=== PATIENT | male | born 1965 ===

== ENCOUNTER 2018-01-10 16:12 | Inpatient (IN) | payer MEDICAID, OTHER ==
[2018-01-10] MEDS ORDERED: Sodium Chloride 0.9% 1,000 ML IV ONE (16:49)
--- NOTE | 2018-01-10 16:49 | C.PDOC ---
History Of Present Illness 52 year old male presents to the ED for evaluation of abdominal pain which began yesterday. Patient also complains of fever, nausea, vomiting and pain that radiates down to his testicles. Patient states he was treated for an unknown abdominal condition in [facility]. He denies dysuria, hematuria, diarrhea, back pain and has no other complaints at this time. Time Seen by Provider: 01/10/18 16:42 Chief Complaint (Nursing): Fever History Per: Patient History/Exam Limitations: no limitations Onset/Duration Of Symptoms: Hrs Current Symptoms Are (Timing): Still Present Associated Symptoms: Fever, Nausea, Vomiting. denies: Diarrhea Additional History Per: Patient Past Medical History Reviewed: Historical Data, Nursing Documentation, Vital Signs Vital Signs: Last Vital Signs Temp 99.6 F 01/11/18 08:00 Pulse 97 H 01/11/18 16:30 Resp 20 01/11/18 08:00 BP 103/64 01/11/18 08:00 Pulse Ox 96 01/11/18 08:00 - Medical History PMH: No Chronic Diseases Surgical History: Cholecystectomy Family History: States: Unknown Family Hx - Social History Hx Alcohol Use: No Hx Substance Use: No - Immunization History Hx Tetanus Toxoid Vaccination: No Hx Influenza Vaccination: No Hx Pneumococcal Vaccination: No Review Of Systems Constitutional: Positive for: Fever Gastrointestinal: Positive for: Nausea, Vomiting, Abdominal Pain. Negative for : Diarrhea Genitourinary: Positive for: Other (testicular pain ). Negative for: Dysuria Musculoskeletal: Negative for: Back Pain Physical Exam - Physical Exam Appears: Non-toxic, No Acute Distress Skin: Normal Color, Warm, Dry Head: Atraumatic, Normacephalic Eye(s): bilateral: Normal Inspection Oral Mucosa: Moist Neck: Supple Cardiovascular: Rhythm Regular, No Murmur Respiratory: Normal Breath Sounds, No Rales, No Rhonchi, No Wheezing Gastrointestinal/Abdominal: Soft, Tenderness (diffuse, worse around suprapubic region ), No Guarding, No Rebound Extremity: Normal ROM, Capillary Refill (less than 2 seconds ) Neurological/Psych: Oriented x3, Normal Speech, Normal Cognition ED Course And Treatment - Laboratory Results Result Diagrams: 01/11/18 06:59 01/11/18 06:59 ECG: Interpreted By Me, Viewed By Me ECG Rhythm: Sinus Rhythm Interpretation Of ECG: Normal Sinus Rhythm at rate 94bpm. No ST/T wave changes. Rate From EC O2 Sat by Pulse Oximetry: 97 (on RA) Pulse Ox Interpretation: Normal Medical Decision Making Medical Decision Making: Progress: Bloodwork, urinalysis, Testicular US, CT A/P ordered and reviewed. Tylenol PO, Zofran IVP, and IV Fluids administered. Disposition - Disposition Disposition: HOSPITALIZED Disposition Time: 08:00 Condition: FAIR - Clinical Impression Clinical Impression: Diverticulitis - Scribe Statement The provider has reviewed the documentation as recorded by the Scribe (Carla Knox) Provider Attestation: All medical record entries made by the Scribe were at my direction and personally dictated by me. I have reviewed the chart and agree that the record accurately reflects my personal performance of the history, physical exam, medical decision making, and the department course for this patient. I have also personally directed, reviewed, and agree with the discharge instructions and disposition. Decision To Admit - Pt Status Changed To: Hospital Disposition Of: Inpatient - Admit Certification Admit to Inpatient:: After my assessment, the patient will require hospitalization for at least two midnights. This is because of the severity of symptoms shown, intensity of services needed, and/or the medical risk in this patient being treated as an outpatient. - InPatient: Physician Admission Certification:: pt with perf diverticulits - . Bed Request Type: Telemetry Admitting Physician: Solitario Nguyen Patient Diagnosis: Diverticulitis
[2018-01-10 16:51] LABS: BASO # 0.1 K/uL (0.0-0.2); BASO % 0.8 % (0.0-2.0); EOS % 0.2 % (0.0-4.0); HEMOGLOBIN 12.5 g/dL (12.0-18.0); LYMPH # 2.5 K/uL (1.0-4.3); LYMPH % 14.7 % (20.0-40.0); MEAN CELL VOLUME 86.6 fL (80.0-94.0); MEAN CORPUSCULAR HEMOGLOBIN 28.8 pg (27.0-31.0); MEAN CORPUSCULAR HGB CONC 33.2 g/dL (33.0-37.0); MEAN PLATELET VOLUME 8.4 fL (7.2-11.7); MONO # 1.2 K/uL (0.0-0.8); MONO % 6.9 % (0.0-10.0); NEUT % 77.4 % (50.0-75.0); RBC 4.33 Mil/uL (4.40-5.90); RED CELL DISTRIBUTION WIDTH 13.9 % (11.5-14.5); WHITE BLOOD COUNT 16.8 K/uL (4.8-10.8)
[2018-01-10 16:58] LABS: VENOUS BLOOD GAS BASE EXCESS -7.6 mmol/L (0.0-2.0); VENOUS BLOOD GAS PCO2 28 mmHg (40-60); VENOUS BLOOD GAS PO2 26 mm/Hg (30-55); VENOUS BLOOD PH 7.37 (7.32-7.43)
[2018-01-10] MEDS ORDERED: Sodium Chloride 0.9% 1,000 ML ONE (17:01)
[2018-01-10 17:03] LABS: ALB/GLOB RATIO 0.8 (1.0-2.1); ALBUMIN 3.8 g/dL (3.5-5.0); CALCIUM 8.6 mg/dl (8.6-10.4); GFR AFRICAN-AMERICAN > 60; GFR NON-AFRICAN AMERICAN > 60
[2018-01-10] MEDS: Sodium Chloride 0.9% 1,000 ML IV ONE ×2 (17:04→17:19)
[2018-01-10 17:09] LABS: ALT/SGPT 61 U/L (21-72); AST/SGOT 39 U/L (17-59); BLOOD UREA NITROGEN 8 mg/dL (9-20)
[2018-01-10 17:23] LABS: SQUAMOUS EPITHIAL < 1 /hpf (0-5); URINE BILIRUBIN NEGATIVE (NEGATIVE); URINE BLOOD NEGATIVE (NEGATIVE); URINE CLARITY Clear (Clear); URINE COLOR Yellow (YELLOW); URINE GLUCOSE (UA) NORMAL (Normal); URINE LEUKOCYTE ESTERASE NEG Leu/uL (Negative); URINE PROTEIN NEGATIVE (NEGATIVE); URINE UROBILINOGEN NORMAL mg/dL (0.2-1.0)
[2018-01-10] MEDS ORDERED: Iohexol 300 100 ML IJ ONE (17:28)
[2018-01-10] MEDS ORDERED: Ciprofloxacin 400mg/200ml D5W 400 MG/200 ML BAG IVPB STA (18:51)
[2018-01-10] MEDS ORDERED: metroNIDAZOLE IV 500 mg/100 ml 500 MG/100 ML BAG IVPB STA (18:52)
--- NOTE | 2018-01-10 18:54 | CT ---
PROCEDURE: CT Abdomen and Pelvis with contrast HISTORY: abd pain leukocytosis COMPARISON: None. TECHNIQUE: Contrast dose: Omnipaque 300, 100 cc Radiation dose: Total exam DLP = 837.33 mGy-cm. This CT exam was performed using one or more of the following dose reduction techniques: Automated exposure control, adjustment of the mA and/or kV according to patient size, and/or use of iterative reconstruction technique. FINDINGS: LOWER THORAX: Cardiomegaly. No pleural or pericardial effusion. Limited linear atelectasis or fibrosis left base. Mild right hemidiaphragm elevation noted. LIVER: Diminished density suggests diffuse hepatic steatosis. No discrete hepatic mass or intrahepatic biliary dilatation identified. GALLBLADDER AND BILE DUCTS: Prior cholecystectomy noted. No significant common bile duct dilatation. PANCREAS: Unremarkable. No gross lesion or ductal dilatation. SPLEEN: Unremarkable. ADRENALS: Unremarkable. No mass. KIDNEYS AND URETERS: A small cyst seen at the upper pole right kidney. No obstructive uropathy bilaterally. Occasional cortical defects in the lower poles of both kidneys encasing the right midpole kidney suspicious for chronic tiny renal infarcts. Punctate nonobstructing intrarenal calculi are suspected bilaterally though these could reflect early excretion of iodinated contrast material. VASCULATURE: Unremarkable. No aortic aneurysm. BOWEL: The stomach is decompressed. There is no bowel obstruction identified. Lack of oral contrast agents limits the evaluation. Examination is positive for thickening of the mid sigmoid colon with extensive diverticular changes and local pericolic reaction. Limited fluid is seen collecting posterior to this loop referral enhancement, measuring 3.5 x 1.6 cm. Loculated extraluminal gas is seen cephalad to the same level of the head of the mid sigmoid colon. Overall, the pattern is most compatible with sigmoid diverticulitis though other etiologies are possible including other infectious or for or inflammatory causes. Ischemia is not favored nor is neoplasm bladder including the differs diagnosis. APPENDIX: Normal appendix. PERITONEUM: See bowel section above. LYMPH NODES: Unremarkable. No enlarged lymph nodes. BLADDER: Unremarkable. REPRODUCTIVE: Enlarged prostate gland. BONES: No acute fracture. OTHER FINDINGS: None. IMPRESSION: Findings most compatible sigmoid diverticulitis with evidence of perforation including extraluminal loculated gas in the peritoneal mid cephalad to the affected mid sigmoid segment and local pericolic fat. Trace fluid is seen posteriorly. Abscess is not favored at this time. Clinical and CT follow-up are advised. Other lesser findings as discussed above. Findings discussed with Dr. Meadows with written down and read back verification 01/10/2018 6:45 p.m..
[2018-01-10] MEDS ORDERED: metroNIDAZOLE IV 500 mg/100 ml 500 MG/100 ML BAG ONE (19:07)
[2018-01-10] MEDS ORDERED: Ciprofloxacin 400mg/200ml D5W 400 MG/200 ML BAG IVPB ONE (19:07)
--- NOTE | 2018-01-10 19:31 | US ---
EXAM: US Scrotum EXAM DATE/TIME: 01/10/2018 4:49 PM CLINICAL HISTORY: 52 years old, male; Pain; Scrotum pain; Additional info: Tesicular pain TECHNIQUE: Real-time ultrasound of the scrotum with color Doppler and image documentation. COMPARISON: There are no prior studies for comparison. FINDINGS: Right: Right testicle measures approximately 3.3 x 1.8 x 2.7 cm. Echotexture is uniform. There are no testicular masses. There is expected intratesticular blood flow. Right epididymal head measures approximately 11 x 10 mm. There is a 2 mm epididymal head cyst. There is a small right hydrocele. Left: Left testicle measures approximately 3.7 x 1.8 x 2.4 cm. Echotexture of the testis is uniform. There no masses. There is expected intratesticular blood flow. Left epididymal head measures 7 x 9 mm. There is an epididymal head cyst. There is a left varicocele. There is a hydrocele. IMPRESSION: No torsion; left varicocele; small bilateral hydroceles
--- NOTE | 2018-01-10 20:04 | CP.PCM.HP ---
History of Present Illness - History of Present Illness History of Present Illness: 52M with no significant past medical history presents to [facility] ED with complaints of abdominal pain. Patient reports pain began yesterday afternoon. He states pain was localized to his lower abdomen, describes pain as being constant and sharp in nature, denies radiation of pain. Patient decided to come to ED when he noticed pain was not improving. Patient reports subjective fever/chills, and nausea. Denies hematemesis/hematochezia. Upon arrival to ED patient was tachycardic(111) and hypotensive (94/62), patient was given 2L bolus, and responded appropriately. At time of examination patient was laying comfortably in bed at this time his vitals were 98.3F, HR88, BP 110/67, RR 18, O2 Sat of 97% on room air. PMH: as stated above PSH: laparoscopic cholecystectomy, umbilical hernia repair Allergies: penicillin Soc Hx: denies smoking, EtOH use, and illicit drug use Fam Hx: non- contributory Present on Admission - Present on Admission Any Indicators Present on Admission: No Review of Systems - Review of Systems Review of Systems: 12pt ROS carried out, unremarkable, except as stated in HPI Past Patient History - Infectious Disease Hx of Infectious Diseases: None - Past Social History Smoking Status: Never Smoked - PSYCHIATRIC Hx Substance Use: No - SURGICAL HISTORY Hx Cholecystectomy: Yes - ANESTHESIA Hx Anesthesia: Yes Hx Anesthesia Reactions: No Meds Allergies/Adverse Reactions: Allergies Allergy/AdvReac Type Severity Reaction Status Date / Time ampicillin Allergy Verified 01/10/18 16:26 Physical Exam - Constitutional Appears: Non-toxic, No Acute Distress - Head Exam Head Exam: NORMOCEPHALIC - Eye Exam Eye Exam: EOMI - Respiratory Exam Respiratory Exam: NORMAL BREATHING PATTERN - Cardiovascular Exam Cardiovascular Exam: +S1, +S2 - GI/Abdominal Exam GI & Abdominal Exam: Distended, Guarding, Soft, Tenderness. absent: Firm, Rigid Additional comments: lower abdominal tenderness with localized guarding moderate distension not peritoneal - Neurological Exam Neurological exam: Alert, Oriented x3 - Psychiatric Exam Psychiatric exam: Normal Mood - Skin Skin Exam: Dry, Intact, Warm Results - Vital Signs Recent Vital Signs: Last Vital Signs Temp 98.3 F 01/10/18 18:53 Pulse 88 01/10/18 18:53 Resp 18 01/10/18 18:53 BP 108/67 01/10/18 18:53 Pulse Ox 97 01/10/18 18:53 - Labs Result Diagrams: 01/10/18 16:48 01/10/18 16:48 Labs: Laboratory Results - last 24 hr 01/10/18 01/10/18 01/10/18 16:48 16:48 16:54 WBC 16.8 H RBC 4.33 L Hgb 12.5 Hct 37.5 MCV 86.6 MCH 28.8 MCHC 33.2 RDW 13.9 Plt Count 397 MPV 8.4 Neut % (Auto) 77.4 H Lymph % (Auto) 14.7 L Hendricks % (Auto) 6.9 Eos % (Auto) 0.2 Baso % (Auto) 0.8 Neut # (Auto) 13.0 H Lymph # (Auto) 2.5 Hendricks # (Auto) 1.2 H Eos # (Auto) 0.0 Baso # (Auto) 0.1 pO2 26 L VBG pH 7.37 VBG pCO2 28 L VBG HCO3 17.6 VBG Total CO2 17.1 L VBG O2 Sat (Calc) 61.2 VBG Base Excess -7.6 L VBG Potassium 2.1 L* Glucose 71 L Lactate 1.0 Crit Value Called To Dr jiménez Crit Value Called By Cristi kenny ground nuclear weapons assembly officer Crit Value Read Back Y Blood Gas Notified Time 1659 Sodium 139 150.0 H Potassium 4.2 Chloride 102 120.0 H Carbon Dioxide 24 Anion Gap 18 BUN 8 L Creatinine 1.1 Est GFR ( Amer) > 60 Est GFR (Non-Af Amer) > 60 Random Glucose 111 H Calcium 8.6 Total Bilirubin 1.0 AST 39 ALT 61 Alkaline Phosphatase 121 Total Protein 8.5 H Albumin 3.8 Globulin 4.6 H Albumin/Globulin Ratio 0.8 L Lipase Venous Blood Potassium 2.1 L* Urine Color Urine Clarity Urine pH Ur Specific Jupiter Urine Protein Urine Glucose (UA) Urine Ketones Urine Blood Urine Nitrate Urine Bilirubin Urine Urobilinogen Ur Leukocyte Esterase Urine WBC (Auto) Urine RBC (Auto) Ur Squamous Epith Cells 01/10/18 01/10/18 16:55 17:17 WBC RBC Hgb Hct MCV MCH MCHC RDW Plt Count MPV Neut % (Auto) Lymph % (Auto) Hendricks % (Auto) Eos % (Auto) Baso % (Auto) Neut # (Auto) Lymph # (Auto) Hendricks # (Auto) Eos # (Auto) Baso # (Auto) pO2 VBG pH VBG pCO2 VBG HCO3 VBG Total CO2 VBG O2 Sat (Calc) VBG Base Excess VBG Potassium Glucose Lactate Crit Value Called To Crit Value Called By Crit Value Read Back Blood Gas Notified Time Sodium Potassium Chloride Carbon Dioxide Anion Gap BUN Creatinine Est GFR ( Amer) Est GFR (Non-Af Amer) Random Glucose Calcium Total Bilirubin AST ALT Alkaline Phosphatase Total Protein Albumin Globulin Albumin/Globulin Ratio Lipase 111 Venous Blood Potassium Urine Color Yellow Urine Clarity Clear Urine pH 5.0 Ur Specific Jupiter 1.016 Urine Protein Negative Urine Glucose (UA) Normal Urine Ketones Negative Urine Blood Negative Urine Nitrate Negative Urine Bilirubin Negative Urine Urobilinogen Normal Ur Leukocyte Esterase Neg Urine WBC (Auto) 4 Urine RBC (Auto) 1 Ur Squamous Epith Cells < 1 - Imaging and Cardiology CT scan - abdomen Status: Image reviewed by me, Report reviewed by me Assessment & Plan - Assessment and Plan (Free Text) Assessment: 52M with sigmoid diverticulitis with perforation Plan: -NPO -IVF -Abx -Analgesic/Anti-emetic -F/u AM labs -Serial abdominal exams -At present time patient is hemodynamically stable -No acute surgical intervention required at this present time -Will obtain repeat imaging, if there is abscess formation will need IR drainage -If patient deteriorates clinically will need operative intervention -Will continue to closely monitor patient -Admit to telemetry -DVT ppx D/w Dr. Patrick Garcia PGY2 - Date & Time Date: 01/10/18 Time: 19:30
[2018-01-10] MEDS ORDERED: HYDROmorphone 1 mg/ml ISec IVP PRN (20:07)
[2018-01-10] MEDS ORDERED: Ciprofloxacin 400mg/200ml D5W 400 MG/200 ML BAG IVPB SCH (21:00)
[2018-01-10] MEDS: Lactated Ringer's 1,000 ML IV SCH (21:48)
[2018-01-11] MEDS: metroNIDAZOLE IV 500 mg/100 ml 500 MG/100 ML BAG IVPB SCH ×3 (00:26→17:54)
[2018-01-11] MEDS: Lactated Ringer's 1,000 ML IV SCH ×3 (05:37→20:41)
[2018-01-11] MEDS: Ciprofloxacin 400mg/200ml D5W 400 MG/200 ML BAG IVPB SCH ×2 (06:07→19:24)
[2018-01-11 07:25] LABS: BASO % 0.1 % (0.0-2.0); EOS % 0.2 % (0.0-4.0); MEAN CORPUSCULAR HEMOGLOBIN 29.3 pg (27.0-31.0); MEAN CORPUSCULAR HGB CONC 33.6 g/dL (33.0-37.0); MEAN PLATELET VOLUME 8.7 fL (7.2-11.7); MONO # 1.2 K/uL (0.0-0.8); MONO % 9.1 % (0.0-10.0); NEUT # 10.1 K/uL (1.8-7.0); NEUT % 75.6 % (50.0-75.0); RBC 3.75 Mil/uL (4.40-5.90); RED CELL DISTRIBUTION WIDTH 13.9 % (11.5-14.5); WHITE BLOOD COUNT 13.4 K/uL (4.8-10.8)
--- NOTE | 2018-01-11 08:02 | CP.PCM.PN ---
Subjective - Date & Time of Evaluation Date of Evaluation: 01/11/18 Time of Evaluation: 07:52 - Subjective Subjective: Surgery: Dr. Nguyen Pt seen and examined. No acute overnight events. States he's doing ok this morning but still has pain in the lower abdominal quadrants. Denies any episodes of N/V. Denies F/C. Objective - Vital Signs/Intake and Output Vital Signs (last 24 hours): Temp Pulse Resp BP Pulse Ox 98.6 F 77 20 125/70 98 01/11/18 00:00 01/11/18 07:47 01/11/18 00:00 01/11/18 00:00 01/11/18 00:00 Intake and Output: 01/11/18 01/11/18 06:59 18:59 Intake Total 125 Balance 125 - Medications Medications: Current Medications Acetaminophen (Tylenol 325mg Tab) 650 mg PO Q6 PRN PRN Reason: Fever >100.4 F Hydromorphone HCl (Dilaudid) 0.5 mg IVP Q3H PRN PRN Reason: Pain, moderate (4-7) Last Admin: 01/10/18 21:46 Dose: 0.5 mg Metronidazole (Flagyl) 500 mg in 100 mls @ 100 mls/hr IVPB Q6 NEYMAR PRN Reason: Protocol Last Admin: 01/11/18 05:37 Dose: 100 mls/hr Ciprofloxacin (Cipro 400mg/200ml Dsw) 400 mg in 200 mls @ 133 mls/hr IVPB Q12H NEYMAR PRN Reason: Protocol Last Admin: 01/11/18 06:07 Dose: 133 mls/hr Lactated Ringer's (Lactated Ringer's) 1,000 mls @ 125 mls/hr IV .Q8H [facility] Last Admin: 01/11/18 06:09 Dose: 125 mls/hr Ondansetron HCl (Zofran Inj) 4 mg IVP Q4 PRN PRN Reason: Nausea/Vomiting - Labs Labs: 01/11/18 06:59 01/10/18 16:48 - Constitutional Appears: Well, No Acute Distress - Head Exam Head Exam: ATRAUMATIC, NORMOCEPHALIC - Eye Exam Eye Exam: Normal appearance - ENT Exam ENT Exam: Mucous Membranes Moist - Respiratory Exam Respiratory Exam: NORMAL BREATHING PATTERN - Cardiovascular Exam Cardiovascular Exam: RRR - GI/Abdominal Exam GI & Abdominal Exam: Soft, Tenderness (R & LLQ). absent: Distended, Guarding - Neurological Exam Neurological Exam: Alert, Awake, Oriented x3 - Skin Skin Exam: Dry, Warm Assessment and Plan - Assessment and Plan (Free Text) Assessment: 52M with acute diverticulitis; [place] Stage Ia Plan: - will continue conservative management - keep NPO with IV ABX - Will get GI on board so that pt can be set up for outpt colonoscopy in 6 weeks - serial abdominal exams - d/w Dr. Nguyen who agrees with above Tracee, PGY-3
[2018-01-11 08:07] LABS: BLOOD UREA NITROGEN 6 mg/dL (9-20); GFR AFRICAN-AMERICAN > 60; GFR NON-AFRICAN AMERICAN > 60
[2018-01-11] MEDS: HYDROmorphone 0.5 mg/0.5 ml ISec IVP PRN (09:21)
[2018-01-11] MEDS: Enoxaparin 40 mg Syringe SC SCH (09:22)
--- NOTE | 2018-01-11 10:12 | CARD ---
APPROVED REPORT EKG Measurement Heart [id number] <Conclusion> Normal sinus rhythm Normal ECG
--- NOTE | 2018-01-11 10:17 | CP.PCM.CON ---
<MarycruzSachaElaina - Last Filed: 01/11/18 13:10> History of Present Illness - History of Present Illness History of Present Illness: Gastroenterology Consult Note Mr. Yo is a 52 year old Male with no significant PMHx who presented to the ED with severe abdominal pain. Patient reports the pain started yesterday afternoon, 1-2 hours after eating food. The pain is localized to the lower aspect of his abdomen, is sharp, constant and does not radiate. He admitted to some diaphoresis and nausea during the initial onset of his pain. He took some tylenol for the pain, with no relief. Denied any vomiting, diarrhea , hematochezia, or black, tarry stools. Denied any recent travel or sick contacts. Admitted to lower abdomen No prior EGD or colonoscopy. 12 point ROS unremarkable unless otherwise noted above. PMHx: Denied PSHx: laparoscopic cholecystectomy, umbilical hernia repair All: PCN SHx: Denied any tobacco, ETOH, or illicit drug use FHx: Denied any GI diseases or malignancies Past Patient History - Infectious Disease Hx of Infectious Diseases: None - Past Social History Smoking Status: Never Smoked - MUSCULOSKELETAL/RHEUMATOLOGICAL Hx Falls: No - PSYCHIATRIC Hx Substance Use: No - SURGICAL HISTORY Hx Cholecystectomy: Yes - ANESTHESIA Hx Anesthesia: Yes Hx Anesthesia Reactions: No Meds Allergies/Adverse Reactions: Allergies Allergy/AdvReac Type Severity Reaction Status Date / Time ampicillin Allergy Verified 01/10/18 16:26 - Medications Medications: Current Medications Acetaminophen (Tylenol 325mg Tab) 650 mg PO Q6 PRN PRN Reason: Fever >100.4 F Enoxaparin Sodium (Lovenox) 40 mg SC DAILY [facility] Last Admin: 01/11/18 09:22 Dose: 40 mg Hydromorphone HCl (Dilaudid) 0.5 mg IVP Q3H PRN PRN Reason: Pain, moderate (4-7) Last Admin: 01/11/18 09:21 Dose: 0.5 mg Metronidazole (Flagyl) 500 mg in 100 mls @ 100 mls/hr IVPB Q6 NEYMAR PRN Reason: Protocol Last Admin: 01/11/18 05:37 Dose: 100 mls/hr Ciprofloxacin (Cipro 400mg/200ml Dsw) 400 mg in 200 mls @ 133 mls/hr IVPB Q12H NEYMAR PRN Reason: Protocol Last Admin: 01/11/18 06:07 Dose: 133 mls/hr Lactated Ringer's (Lactated Ringer's) 1,000 mls @ 125 mls/hr IV .Q8H NEYMAR Last Admin: 01/11/18 06:09 Dose: 125 mls/hr Ondansetron HCl (Zofran Inj) 4 mg IVP Q4 PRN PRN Reason: Nausea/Vomiting Physical Exam - Constitutional Appears: No Acute Distress - Head Exam Head Exam: NORMAL INSPECTION, NORMOCEPHALIC - Eye Exam Eye Exam: EOMI, Normal appearance, PERRL Pupil Exam: NORMAL ACCOMODATION - ENT Exam ENT Exam: Mucous Membranes Moist, Normal Exam - Respiratory Exam Respiratory Exam: Clear to Auscultation Bilateral, NORMAL BREATHING PATTERN - Cardiovascular Exam Cardiovascular Exam: REGULAR RHYTHM - GI/Abdominal Exam GI & Abdominal Exam: Normal Bowel Sounds, Soft, Tenderness (TTP RLQ, LLQ ). absent: Distended, Organomegaly - Rectal Exam Rectal Exam: Deferred - Extremities Exam Extremities exam: Positive for: normal inspection, pedal pulses present. Negative for: pedal edema, tenderness - Neurological Exam Neurological exam: Alert, Oriented x3 - Psychiatric Exam Psychiatric exam: Normal Affect, Normal Mood - Skin Skin Exam: Dry, Intact, Normal Color, Warm Results - Vital Signs Recent Vital Signs: Last Vital Signs Temp 99.6 F 01/11/18 08:00 Pulse 88 01/11/18 08:00 Resp 20 01/11/18 08:00 BP 103/64 01/11/18 08:00 Pulse Ox 96 01/11/18 08:00 - Labs Result Diagrams: 01/11/18 06:59 01/11/18 06:59 Labs: Laboratory Results - last 24 hr 01/10/18 01/10/18 01/10/18 16:48 16:48 16:54 WBC 16.8 H RBC 4.33 L Hgb 12.5 Hct 37.5 MCV 86.6 MCH 28.8 MCHC 33.2 RDW 13.9 Plt Count 397 MPV 8.4 Neut % (Auto) 77.4 H Lymph % (Auto) 14.7 L Mcdonald % (Auto) 6.9 Eos % (Auto) 0.2 Baso % (Auto) 0.8 Neut # (Auto) 13.0 H Lymph # (Auto) 2.5 Mcdonald # (Auto) 1.2 H Eos # (Auto) 0.0 Baso # (Auto) 0.1 pO2 26 L VBG pH 7.37 VBG pCO2 28 L VBG HCO3 17.6 VBG Total CO2 17.1 L VBG O2 Sat (Calc) 61.2 VBG Base Excess -7.6 L VBG Potassium 2.1 L* Glucose 71 L Lactate 1.0 Crit Value Called To Dr jiménez Crit Value Called By Cristi kenny aml analyst Crit Value Read Back Y Blood Gas Notified Time 1659 Sodium 139 150.0 H Potassium 4.2 Chloride 102 120.0 H Carbon Dioxide 24 Anion Gap 18 BUN 8 L Creatinine 1.1 Est GFR ( Amer) > 60 Est GFR (Non-Af Amer) > 60 Random Glucose 111 H Calcium 8.6 Total Bilirubin 1.0 AST 39 ALT 61 Alkaline Phosphatase 121 Total Protein 8.5 H Albumin 3.8 Globulin 4.6 H Albumin/Globulin Ratio 0.8 L Lipase Venous Blood Potassium 2.1 L* Urine Color Urine Clarity Urine pH Ur Specific [place] Urine Protein Urine Glucose (UA) Urine Ketones Urine Blood Urine Nitrate Urine Bilirubin Urine Urobilinogen Ur Leukocyte Esterase Urine WBC (Auto) Urine RBC (Auto) Ur Squamous Epith Cells 01/10/18 01/10/18 01/11/18 16:55 17:17 06:59 WBC 13.4 H RBC 3.75 L Hgb 11.0 L Hct 32.7 L MCV 87.0 MCH 29.3 MCHC 33.6 RDW 13.9 Plt Count 323 MPV 8.7 Neut % (Auto) 75.6 H Lymph % (Auto) 15.0 L Mcdonald % (Auto) 9.1 Eos % (Auto) 0.2 Baso % (Auto) 0.1 Neut # (Auto) 10.1 H Lymph # (Auto) 2.0 Mcdonald # (Auto) 1.2 H Eos # (Auto) 0.0 Baso # (Auto) 0.0 pO2 VBG pH VBG pCO2 VBG HCO3 VBG Total CO2 VBG O2 Sat (Calc) VBG Base Excess VBG Potassium Glucose Lactate Crit Value Called To Crit Value Called By Crit Value Read Back Blood Gas Notified Time Sodium Potassium Chloride Carbon Dioxide Anion Gap BUN Creatinine Est GFR ( Amer) Est GFR (Non-Af Amer) Random Glucose Calcium Total Bilirubin AST ALT Alkaline Phosphatase Total Protein Albumin Globulin Albumin/Globulin Ratio Lipase 111 Venous Blood Potassium Urine Color Yellow Urine Clarity Clear Urine pH 5.0 Ur Specific [place] 1.016 Urine Protein Negative Urine Glucose (UA) Normal Urine Ketones Negative Urine Blood Negative Urine Nitrate Negative Urine Bilirubin Negative Urine Urobilinogen Normal Ur Leukocyte Esterase Neg Urine WBC (Auto) 4 Urine RBC (Auto) 1 Ur Squamous Epith Cells < 1 01/11/18 06:59 WBC RBC Hgb Hct MCV MCH MCHC RDW Plt Count MPV Neut % (Auto) Lymph % (Auto) Mcdonald % (Auto) Eos % (Auto) Baso % (Auto) Neut # (Auto) Lymph # (Auto) Mcdonald # (Auto) Eos # (Auto) Baso # (Auto) pO2 VBG pH VBG pCO2 VBG HCO3 VBG Total CO2 VBG O2 Sat (Calc) VBG Base Excess VBG Potassium Glucose Lactate Crit Value Called To Crit Value Called By Crit Value Read Back Blood Gas Notified Time Sodium 140 Potassium 3.8 Chloride 105 Carbon Dioxide 23 Anion Gap 15 BUN 6 L Creatinine 1.1 Est GFR ( Amer) > 60 Est GFR (Non-Af Amer) > 60 Random Glucose 95 Calcium 8.0 L Total Bilirubin AST ALT Alkaline Phosphatase Total Protein Albumin Globulin Albumin/Globulin Ratio Lipase Venous Blood Potassium Urine Color Urine Clarity Urine pH Ur Specific [place] Urine Protein Urine Glucose (UA) Urine Ketones Urine Blood Urine Nitrate Urine Bilirubin Urine Urobilinogen Ur Leukocyte Esterase Urine WBC (Auto) Urine RBC (Auto) Ur Squamous Epith Cells Assessment & Plan - Assessment and Plan (Free Text) Assessment: Mr. Yo is a 52 year old Male with no significant PMHx who presented to the ED with severe abdominal pain. Patient reports the pain started yesterday afternoon, 1-2 hours after eating food. The pain is localized to the lower aspect of his abdomen, is sharp, constant and does not radiate. CT scan showed sigmoid diverticulitis with loculated air in sigmoid mesentery. Sigmoid diverticulitis with micro perforations in the sigmoid mesentery Plan: - Advance diet as tolerated - Continue with IV abx, antiemetics - Recommend outpatient colonoscopy in 6-8 weeks - Will continue to monitor patient's clinical course DW Elaina Washburn DO, PGY-1 <Davide Vasquez - Last Filed: 01/11/18 14:17> Meds - Medications Medications: Current Medications Acetaminophen (Tylenol 325mg Tab) 650 mg PO Q6 PRN PRN Reason: Fever >100.4 F Enoxaparin Sodium (Lovenox) 40 mg SC DAILY [facility] Last Admin: 01/11/18 09:22 Dose: 40 mg Hydromorphone HCl (Dilaudid) 0.5 mg IVP Q3H PRN PRN Reason: Pain, moderate (4-7) Last Admin: 01/11/18 09:21 Dose: 0.5 mg Metronidazole (Flagyl) 500 mg in 100 mls @ 100 mls/hr IVPB Q6 NEYMAR PRN Reason: Protocol Last Admin: 01/11/18 05:37 Dose: 100 mls/hr Ciprofloxacin (Cipro 400mg/200ml Dsw) 400 mg in 200 mls @ 133 mls/hr IVPB Q12H NEYMAR PRN Reason: Protocol Last Admin: 01/11/18 06:07 Dose: 133 mls/hr Lactated Ringer's (Lactated Ringer's) 1,000 mls @ 125 mls/hr IV .Q8H [facility] Last Admin: 01/11/18 06:09 Dose: 125 mls/hr Ondansetron HCl (Zofran Inj) 4 mg IVP Q4 PRN PRN Reason: Nausea/Vomiting Results - Vital Signs Recent Vital Signs: Last Vital Signs Temp 99.6 F 01/11/18 08:00 Pulse 91 H 01/11/18 12:00 Resp 20 01/11/18 08:00 BP 103/64 01/11/18 08:00 Pulse Ox 96 01/11/18 08:00 - Labs Result Diagrams: 01/11/18 06:59 01/11/18 06:59 Labs: Laboratory Results - last 24 hr 01/10/18 01/10/18 01/10/18 16:48 16:48 16:54 WBC 16.8 H RBC 4.33 L Hgb 12.5 Hct 37.5 MCV 86.6 MCH 28.8 MCHC 33.2 RDW 13.9 Plt Count 397 MPV 8.4 Neut % (Auto) 77.4 H Lymph % (Auto) 14.7 L Mcdonald % (Auto) 6.9 Eos % (Auto) 0.2 Baso % (Auto) 0.8 Neut # (Auto) 13.0 H Lymph # (Auto) 2.5 Mcdonald # (Auto) 1.2 H Eos # (Auto) 0.0 Baso # (Auto) 0.1 pO2 26 L VBG pH 7.37 VBG pCO2 28 L VBG HCO3 17.6 VBG Total CO2 17.1 L VBG O2 Sat (Calc) 61.2 VBG Base Excess -7.6 L VBG Potassium 2.1 L* Glucose 71 L Lactate 1.0 Crit Value Called To Dr jiménez Crit Value Called By Cristi kenny aml analyst Crit Value Read Back Y Blood Gas Notified Time 1659 Sodium 139 150.0 H Potassium 4.2 Chloride 102 120.0 H Carbon Dioxide 24 Anion Gap 18 BUN 8 L Creatinine 1.1 Est GFR ( Amer) > 60 Est GFR (Non-Af Amer) > 60 Random Glucose 111 H Calcium 8.6 Total Bilirubin 1.0 AST 39 ALT 61 Alkaline Phosphatase 121 Total Protein 8.5 H Albumin 3.8 Globulin 4.6 H Albumin/Globulin Ratio 0.8 L Lipase Venous Blood Potassium 2.1 L* Urine Color Urine Clarity Urine pH Ur Specific [place] Urine Protein Urine Glucose (UA) Urine Ketones Urine Blood Urine Nitrate Urine Bilirubin Urine Urobilinogen Ur Leukocyte Esterase Urine WBC (Auto) Urine RBC (Auto) Ur Squamous Epith Cells 01/10/18 01/10/18 01/11/18 16:55 17:17 06:59 WBC 13.4 H RBC 3.75 L Hgb 11.0 L Hct 32.7 L MCV 87.0 MCH 29.3 MCHC 33.6 RDW 13.9 Plt Count 323 MPV 8.7 Neut % (Auto) 75.6 H Lymph % (Auto) 15.0 L Mcdonald % (Auto) 9.1 Eos % (Auto) 0.2 Baso % (Auto) 0.1 Neut # (Auto) 10.1 H Lymph # (Auto) 2.0 Mcdonald # (Auto) 1.2 H Eos # (Auto) 0.0 Baso # (Auto) 0.0 pO2 VBG pH VBG pCO2 VBG HCO3 VBG Total CO2 VBG O2 Sat (Calc) VBG Base Excess VBG Potassium Glucose Lactate Crit Value Called To Crit Value Called By Crit Value Read Back Blood Gas Notified Time Sodium Potassium Chloride Carbon Dioxide Anion Gap BUN Creatinine Est GFR ( Amer) Est GFR (Non-Af Amer) Random Glucose Calcium Total Bilirubin AST ALT Alkaline Phosphatase Total Protein Albumin Globulin Albumin/Globulin Ratio Lipase 111 Venous Blood Potassium Urine Color Yellow Urine Clarity Clear Urine pH 5.0 Ur Specific [place] 1.016 Urine Protein Negative Urine Glucose (UA) Normal Urine Ketones Negative Urine Blood Negative Urine Nitrate Negative Urine Bilirubin Negative Urine Urobilinogen Normal Ur Leukocyte Esterase Neg Urine WBC (Auto) 4 Urine RBC (Auto) 1 Ur Squamous Epith Cells < 1 01/11/18 06:59 WBC RBC Hgb Hct MCV MCH MCHC RDW Plt Count MPV Neut % (Auto) Lymph % (Auto) Mcdonald % (Auto) Eos % (Auto) Baso % (Auto) Neut # (Auto) Lymph # (Auto) Mcdonald # (Auto) Eos # (Auto) Baso # (Auto) pO2 VBG pH VBG pCO2 VBG HCO3 VBG Total CO2 VBG O2 Sat (Calc) VBG Base Excess VBG Potassium Glucose Lactate Crit Value Called To Crit Value Called By Crit Value Read Back Blood Gas Notified Time Sodium 140 Potassium 3.8 Chloride 105 Carbon Dioxide 23 Anion Gap 15 BUN 6 L Creatinine 1.1 Est GFR ( Amer) > 60 Est GFR (Non-Af Amer) > 60 Random Glucose 95 Calcium 8.0 L Total Bilirubin AST ALT Alkaline Phosphatase Total Protein Albumin Globulin Albumin/Globulin Ratio Lipase Venous Blood Potassium Urine Color Urine Clarity Urine pH Ur Specific [place] Urine Protein Urine Glucose (UA) Urine Ketones Urine Blood Urine Nitrate Urine Bilirubin Urine Urobilinogen Ur Leukocyte Esterase Urine WBC (Auto) Urine RBC (Auto) Ur Squamous Epith Cells Attending/Attestation - Attestation I have personally seen and examined this patient.: Yes I have fully participated in the care of the patient.: Yes I have reviewed all pertinent clinical information: Yes Notes (Text): 01/11/18 14:17 52 year old male who presents with LLQ pain found to have acute sigmoid diverticulitis. Recommend IV antibiotics. Appreciated surgical evaluation. Recommend outpatient colonoscopy in 6-8 weeks.
[2018-01-12] MEDS: metroNIDAZOLE IV 500 mg/100 ml 500 MG/100 ML BAG IVPB SCH ×4 (00:37→18:08)
[2018-01-12] MEDS: Ciprofloxacin 400mg/200ml D5W 400 MG/200 ML BAG IVPB SCH ×2 (06:23→18:05)
[2018-01-12 06:29] LABS: BASO % 0.2 % (0.0-2.0); EOS # 0.1 K/uL (0.0-0.7); EOS % 0.7 % (0.0-4.0); HEMOGLOBIN 11.2 g/dL (12.0-18.0); LYMPH % 19.3 % (20.0-40.0); MEAN CELL VOLUME 86.5 fL (80.0-94.0); MEAN CORPUSCULAR HGB CONC 33.5 g/dL (33.0-37.0); MEAN PLATELET VOLUME 8.2 fL (7.2-11.7); MONO # 1.2 K/uL (0.0-0.8); MONO % 11.4 % (0.0-10.0); NEUT # 6.9 K/uL (1.8-7.0); NEUT % 68.4 % (50.0-75.0); RBC 3.85 Mil/uL (4.40-5.90); RED CELL DISTRIBUTION WIDTH 13.7 % (11.5-14.5); WHITE BLOOD COUNT 10.2 K/uL (4.8-10.8)
--- NOTE | 2018-01-12 06:42 | CP.PCM.PN ---
Subjective - Date & Time of Evaluation Date of Evaluation: 01/12/18 Time of Evaluation: 06:42 - Subjective Subjective: Gen Sx: Dr Nguyen Pt S&E. NAEO. Reports pain is improved but still present. Tolerating CLD. Passing flatus but no BM. Denies f/c, sob, chest pain, n/v. Objective - Vital Signs/Intake and Output Vital Signs (last 24 hours): Temp Pulse Resp BP Pulse Ox 98.4 F 80 20 120/72 97 01/12/18 04:47 01/12/18 04:47 01/12/18 04:47 01/12/18 04:47 01/12/18 04:47 Intake and Output: 01/11/18 01/12/18 18:59 06:59 Intake Total 1000 1500 Output Total 1600 Balance -600 1500 - Medications Medications: Current Medications Acetaminophen (Tylenol 325mg Tab) 650 mg PO Q6 PRN PRN Reason: Fever >100.4 F Enoxaparin Sodium (Lovenox) 40 mg SC DAILY [facility] Last Admin: 01/11/18 09:22 Dose: 40 mg Hydromorphone HCl (Dilaudid) 0.5 mg IVP Q3H PRN PRN Reason: Pain, moderate (4-7) Last Admin: 01/11/18 09:21 Dose: 0.5 mg Metronidazole (Flagyl) 500 mg in 100 mls @ 100 mls/hr IVPB Q6 NEYMAR PRN Reason: Protocol Last Admin: 01/12/18 05:27 Dose: 100 mls/hr Ciprofloxacin (Cipro 400mg/200ml Dsw) 400 mg in 200 mls @ 133 mls/hr IVPB Q12H NEYMAR PRN Reason: Protocol Last Admin: 01/12/18 06:23 Dose: 133 mls/hr Lactated Ringer's (Lactated Ringer's) 1,000 mls @ 50 mls/hr IV .Q20H [facility] Last Admin: 01/11/18 20:41 Dose: 50 mls/hr Ketorolac Tromethamine (Toradol) 30 mg IVP Q6 PRN PRN Reason: Pain, Mild (1-3) Last Admin: 01/12/18 04:27 Dose: 30 mg Ondansetron HCl (Zofran Inj) 4 mg IVP Q4 PRN PRN Reason: Nausea/Vomiting - Labs Labs: 01/11/18 06:59 01/11/18 06:59 - Constitutional Appears: Non-toxic, No Acute Distress - ENT Exam ENT Exam: Mucous Membranes Moist - Respiratory Exam Respiratory Exam: absent: Accessory Muscle Use, Respiratory Distress - Cardiovascular Exam Cardiovascular Exam: REGULAR RHYTHM. absent: Tachycardia - GI/Abdominal Exam GI & Abdominal Exam: Soft, Tenderness (suprapubic but improved). absent: Distended, Firm, Guarding, Rigid, Rebound - Neurological Exam Neurological Exam: Alert, Awake, Oriented x3 - Psychiatric Exam Psychiatric exam: Normal Affect, Normal Mood - Skin Skin Exam: Normal Color, Warm Assessment and Plan - Assessment and Plan (Free Text) Assessment: 52M with diverticulitis Plan: cont abx cont CLD for one more day no immediate surgical intervention planned outpatient coloinoscopy in 6-8 weeks d/w Dr Patrick Reyes, PGY3
[2018-01-12 06:44] LABS: BLOOD UREA NITROGEN 8 mg/dL (9-20); GFR AFRICAN-AMERICAN > 60; GFR NON-AFRICAN AMERICAN > 60
--- NOTE | 2018-01-12 09:43 | CP.PCM.PN ---
<Melissa Knox - Last Filed: 01/12/18 09:44> Subjective - Date & Time of Evaluation Date of Evaluation: 01/12/18 Time of Evaluation: 07:45 - Subjective Subjective: PGY4 GI Follow-up Pt seen and examined bedside decreased abd pain denies any BM tolerating clears ROS: 10 point ROS conducted, elsa other than above Objective - Vital Signs/Intake and Output Vital Signs (last 24 hours): Temp Pulse Resp BP Pulse Ox 97.9 F 83 20 100/63 97 01/12/18 07:40 01/12/18 07:40 01/12/18 07:40 01/12/18 07:40 01/12/18 07:40 Intake and Output: 01/12/18 01/12/18 06:59 18:59 Intake Total 1500 400 Balance 1500 400 - Medications Medications: Current Medications Acetaminophen (Tylenol 325mg Tab) 650 mg PO Q6 PRN PRN Reason: Fever >100.4 F Enoxaparin Sodium (Lovenox) 40 mg SC DAILY [facility] Last Admin: 01/11/18 09:22 Dose: 40 mg Hydromorphone HCl (Dilaudid) 0.5 mg IVP Q3H PRN PRN Reason: Pain, moderate (4-7) Last Admin: 01/11/18 09:21 Dose: 0.5 mg Metronidazole (Flagyl) 500 mg in 100 mls @ 100 mls/hr IVPB Q6 NEYMAR PRN Reason: Protocol Last Admin: 01/12/18 05:27 Dose: 100 mls/hr Ciprofloxacin (Cipro 400mg/200ml Dsw) 400 mg in 200 mls @ 133 mls/hr IVPB Q12H NEYMAR PRN Reason: Protocol Last Admin: 01/12/18 06:23 Dose: 133 mls/hr Lactated Ringer's (Lactated Ringer's) 1,000 mls @ 50 mls/hr IV .Q20H [facility] Last Admin: 01/11/18 20:41 Dose: 50 mls/hr Ketorolac Tromethamine (Toradol) 30 mg IVP Q6 PRN PRN Reason: Pain, Mild (1-3) Last Admin: 01/12/18 04:27 Dose: 30 mg Ondansetron HCl (Zofran Inj) 4 mg IVP Q4 PRN PRN Reason: Nausea/Vomiting - Labs Labs: 01/12/18 06:18 01/12/18 06:18 - Constitutional Appears: Well, No Acute Distress - Head Exam Head Exam: ATRAUMATIC, NORMOCEPHALIC - Eye Exam Eye Exam: Normal appearance - ENT Exam ENT Exam: Mucous Membranes Moist, Normal Exam - Neck Exam Neck Exam: Normal Inspection - Respiratory Exam Respiratory Exam: Clear to Ausculation Bilateral, NORMAL BREATHING PATTERN. absent: Rales, Rhonchi, Wheezes, Respiratory Distress - Cardiovascular Exam Cardiovascular Exam: REGULAR RHYTHM, +S1, +S2 - GI/Abdominal Exam GI & Abdominal Exam: Soft, Tenderness Additional comments: LLQ and lower umbilical area - Extremities Exam Extremities Exam: absent: Joint Swelling, Pedal Edema - Neurological Exam Neurological Exam: Alert, Awake, Oriented x3 - Psychiatric Exam Psychiatric exam: Normal Affect, Normal Mood - Skin Skin Exam: Dry, Intact, Normal Color, Warm Assessment and Plan - Assessment and Plan (Free Text) Assessment: Mr. Yo is a 52 year old Male with no significant PMHx who presented to the ED with severe abdominal pain. Patient reports the pain started yesterday afternoon, 1-2 hours after eating food. The pain is localized to the lower aspect of his abdomen, is sharp, constant and does not radiate. CT scan showed sigmoid diverticulitis with loculated air in sigmoid mesentery w/ fluid collection. Sigmoid diverticulitis with micro perforations in the sigmoid mesentery Plan: - Advance diet as tolerated - Continue with IV abx, antiemetics as per surgery - would recommend repeat CT abd on sunday to reeval collection - Recommend outpatient colonoscopy in 6-8 weeks - Will continue to monitor patient's clinical course DW Dr. Worthy <Drew Worthy - Last Filed: 01/12/18 10:01> Objective - Vital Signs/Intake and Output Vital Signs (last 24 hours): Temp Pulse Resp BP Pulse Ox 97.9 F 83 20 100/63 97 01/12/18 07:40 01/12/18 07:40 01/12/18 07:40 01/12/18 07:40 01/12/18 07:40 Intake and Output: 01/12/18 01/12/18 06:59 18:59 Intake Total 1500 400 Balance 1500 400 - Medications Medications: Current Medications Acetaminophen (Tylenol 325mg Tab) 650 mg PO Q6 PRN PRN Reason: Fever >100.4 F Enoxaparin Sodium (Lovenox) 40 mg SC DAILY [facility] Last Admin: 01/11/18 09:22 Dose: 40 mg Hydromorphone HCl (Dilaudid) 0.5 mg IVP Q3H PRN PRN Reason: Pain, moderate (4-7) Last Admin: 01/11/18 09:21 Dose: 0.5 mg Metronidazole (Flagyl) 500 mg in 100 mls @ 100 mls/hr IVPB Q6 NEYMAR PRN Reason: Protocol Last Admin: 01/12/18 05:27 Dose: 100 mls/hr Ciprofloxacin (Cipro 400mg/200ml Dsw) 400 mg in 200 mls @ 133 mls/hr IVPB Q12H NEYMAR PRN Reason: Protocol Last Admin: 01/12/18 06:23 Dose: 133 mls/hr Lactated Ringer's (Lactated Ringer's) 1,000 mls @ 50 mls/hr IV .Q20H [facility] Last Admin: 01/11/18 20:41 Dose: 50 mls/hr Ketorolac Tromethamine (Toradol) 30 mg IVP Q6 PRN PRN Reason: Pain, Mild (1-3) Last Admin: 01/12/18 04:27 Dose: 30 mg Ondansetron HCl (Zofran Inj) 4 mg IVP Q4 PRN PRN Reason: Nausea/Vomiting - Labs Labs: 01/12/18 06:18 01/12/18 06:18 Attending/Attestation - Attestation I have personally seen and examined this patient.: Yes I have fully participated in the care of the patient.: Yes I have reviewed all pertinent clinical information, including history, physical exam and plan: Yes Notes (Text): 01/12/18 09:58 I have seen and examined patient with GI fellow. No acute events overnight, he still continues to endorse LLQ abdominal pain, though improved compared to yesterday. He denies nausea, vomiting, fever/chills. Tolerating PO liquids without difficulty. Review of vitals from today are normal. Abdominal pain Acute sigmoid diverticulitis complicated by perforation with associated fluid collection - Liquid diet as tolerated - Continue with antibiotic therapy - Suggest repeat CT imaging within additional 48 hours to assess for disease progression - Follow up surgical recommendations - Patient will eventually require colonoscopy evaluation 8 weeks following resolution of acute symptoms. No further planned GI intervention at this time, will sign off case. Please reconsult as necessary, thank you.
[2018-01-12] MEDS: Enoxaparin 40 mg Syringe SC SCH (10:00)
[2018-01-12] MEDS: Lactated Ringer's 1,000 ML IV SCH ×2 (14:53→16:25)
[2018-01-13] MEDS: metroNIDAZOLE IV 500 mg/100 ml 500 MG/100 ML BAG IVPB SCH ×4 (00:50→18:09)
[2018-01-13] MEDS: HYDROmorphone 0.5 mg/0.5 ml ISec IVP PRN (06:06)
[2018-01-13] MEDS: Ciprofloxacin 400mg/200ml D5W 400 MG/200 ML BAG IVPB SCH ×2 (06:45→19:12)
[2018-01-13 07:28] LABS: BASO % 0.3 % (0.0-2.0); EOS % 0.3 % (0.0-4.0); HEMOGLOBIN 10.9 g/dL (12.0-18.0); LYMPH # 1.4 K/uL (1.0-4.3); LYMPH % 12.2 % (20.0-40.0); MEAN CELL VOLUME 85.9 fL (80.0-94.0); MEAN CORPUSCULAR HEMOGLOBIN 29.3 pg (27.0-31.0); MEAN CORPUSCULAR HGB CONC 34.1 g/dL (33.0-37.0); MEAN PLATELET VOLUME 8.5 fL (7.2-11.7); MONO # 1.3 K/uL (0.0-0.8); MONO % 11.6 % (0.0-10.0); NEUT # 8.7 K/uL (1.8-7.0); NEUT % 75.6 % (50.0-75.0); RBC 3.72 Mil/uL (4.40-5.90); RED CELL DISTRIBUTION WIDTH 13.5 % (11.5-14.5); WHITE BLOOD COUNT 11.5 K/uL (4.8-10.8)
[2018-01-13 08:06] LABS: BLOOD UREA NITROGEN 5 mg/dL (9-20); CALCIUM 7.7 mg/dl (8.6-10.4); GFR AFRICAN-AMERICAN > 60; GFR NON-AFRICAN AMERICAN > 60
[2018-01-13] MEDS: Enoxaparin 40 mg Syringe SC SCH (09:21)
--- NOTE | 2018-01-13 13:15 | CP.PCM.PN ---
Subjective - Date & Time of Evaluation Date of Evaluation: 01/13/18 Time of Evaluation: 09:35 - Subjective Subjective: Surgery Progress note. Dr. Nguyen Pt seen and examined at bedside. Family member at bedside during examination. States that the abdominal pain is slightly worse this morning. Reports a fever, tmax 102.3F. No N/V. Stool with reports of red blood smear mixed in. Objective - Vital Signs/Intake and Output Vital Signs (last 24 hours): Temp Pulse Resp BP Pulse Ox 98.1 F 97 H 18 115/68 96 01/13/18 12:05 01/13/18 07:30 01/13/18 07:30 01/13/18 07:30 01/13/18 07:30 Intake and Output: 01/13/18 01/13/18 06:59 18:59 Intake Total 500 Output Total 1300 Balance -800 - Medications Medications: Current Medications Acetaminophen (Tylenol 325mg Tab) 650 mg PO Q6 PRN PRN Reason: Fever >100.4 F Last Admin: 01/13/18 07:41 Dose: 650 mg Enoxaparin Sodium (Lovenox) 40 mg SC DAILY [facility] Last Admin: 01/13/18 09:21 Dose: 40 mg Hydromorphone HCl (Dilaudid) 0.5 mg IVP Q3H PRN PRN Reason: Pain, moderate (4-7) Last Admin: 01/13/18 06:06 Dose: 0.5 mg Metronidazole (Flagyl) 500 mg in 100 mls @ 100 mls/hr IVPB Q6 NEYMAR PRN Reason: Protocol Last Admin: 01/13/18 11:12 Dose: 100 mls/hr Ciprofloxacin (Cipro 400mg/200ml Dsw) 400 mg in 200 mls @ 133 mls/hr IVPB Q12H NEYMAR PRN Reason: Protocol Last Admin: 01/13/18 06:45 Dose: 133 mls/hr Lactated Ringer's (Lactated Ringer's) 1,000 mls @ 125 mls/hr IV .Q8H [facility] Ketorolac Tromethamine (Toradol) 30 mg IVP Q6 PRN PRN Reason: Pain, Mild (1-3) Last Admin: 01/13/18 00:51 Dose: 30 mg Ondansetron HCl (Zofran Inj) 4 mg IVP Q4 PRN PRN Reason: Nausea/Vomiting Last Admin: 01/13/18 06:41 Dose: 4 mg - Labs Labs: 01/13/18 07:18 01/13/18 07:18 - Constitutional Appears: Non-toxic, No Acute Distress - Head Exam Head Exam: ATRAUMATIC, NORMAL INSPECTION, NORMOCEPHALIC - Eye Exam Eye Exam: EOMI, Normal appearance - ENT Exam ENT Exam: Mucous Membranes Moist - Respiratory Exam Respiratory Exam: NORMAL BREATHING PATTERN. absent: Accessory Muscle Use, Respiratory Distress - Cardiovascular Exam Cardiovascular Exam: RRR. absent: JVD - GI/Abdominal Exam GI & Abdominal Exam: Soft Additional comments: tenderness in LLQ, suprapubic area. no rebound, no guarding. soft, non-distended - Extremities Exam Extremities Exam: Normal Inspection. absent: Calf Tenderness - Neurological Exam Neurological Exam: Alert, Awake, Oriented x3 - Psychiatric Exam Psychiatric exam: Normal Affect, Normal Mood - Skin Skin Exam: Dry, Intact, Normal Color, Warm Assessment and Plan - Assessment and Plan (Free Text) Assessment: 52yo M with diverticulitis Plan: - Continue IV Abx - Make NPO for further bowel rest - will consider repeat CT scan tomorrow if symptoms do not improve - continue IVF - strict I&O - will need outpatient colonoscopy in 6-8wks further recs as per Dr. Patrick Briceño PGY1 surgery pager: [phone]
[2018-01-13] MEDS: Lactated Ringer's 1,000 ML IV SCH ×2 (13:44→21:18)
[2018-01-14] MEDS: Lactated Ringer's 1,000 ML IV SCH ×4 (00:37→21:36)
[2018-01-14] MEDS: metroNIDAZOLE IV 500 mg/100 ml 500 MG/100 ML BAG IVPB SCH ×4 (00:37→17:17)
[2018-01-14] MEDS: HYDROmorphone 0.5 mg/0.5 ml ISec IVP PRN (00:43)
[2018-01-14 06:29] LABS: BASO % 0.5 % (0.0-2.0); EOS # 0.1 K/uL (0.0-0.7); EOS % 1.6 % (0.0-4.0); HEMOGLOBIN 11.3 g/dL (12.0-18.0); LYMPH # 2.3 K/uL (1.0-4.3); LYMPH % 33.4 % (20.0-40.0); MEAN CELL VOLUME 86.4 fL (80.0-94.0); MEAN CORPUSCULAR HEMOGLOBIN 29.8 pg (27.0-31.0); MEAN CORPUSCULAR HGB CONC 34.5 g/dL (33.0-37.0); MEAN PLATELET VOLUME 8.6 fL (7.2-11.7); MONO # 0.8 K/uL (0.0-0.8); MONO % 11.6 % (0.0-10.0); NEUT # 3.7 K/uL (1.8-7.0); NEUT % 52.9 % (50.0-75.0); NRBC % 0.1 % (0.0-2.0); RBC 3.8 Mil/uL (4.40-5.90); RED CELL DISTRIBUTION WIDTH 13.5 % (11.5-14.5)
[2018-01-14 06:50] LABS: ALB/GLOB RATIO 0.7 (1.0-2.1); ALBUMIN 3.1 g/dL (3.5-5.0); ALT/SGPT 32 U/L (21-72); AST/SGOT 25 U/L (17-59); BLOOD UREA NITROGEN 4 mg/dL (9-20); CALCIUM 8.1 mg/dl (8.6-10.4); GFR AFRICAN-AMERICAN > 60; GFR NON-AFRICAN AMERICAN > 60
[2018-01-14] MEDS: Ciprofloxacin 400mg/200ml D5W 400 MG/200 ML BAG IVPB SCH ×2 (07:55→21:35)
[2018-01-14] MEDS ORDERED: Iodixanol 320 MG/ML 100 ML BOTTLE IV ONE (10:24)
[2018-01-14] MEDS: Enoxaparin 40 mg Syringe SC SCH (10:31)
--- NOTE | 2018-01-14 13:04 | CT ---
PROCEDURE: CT scan abdomen and pelvis dated 01/14/2018 HISTORY: Diverticulitis; evaluate for abscess COMPARISON: Comparison made with prior study 01/10/2018 TECHNIQUE: Contiguous axial images of the abdomen and pelvis following intravenous injection of approximately 100 cc Visipaque 320 contrast material. Additional 2 dimensional sagittal and coronal reformats generated. Radiation dose: Total exam DLP = This CT exam was performed using one or more of the following dose reduction techniques: Automated exposure control, adjustment of the mA and/or kV according to patient size, and/or use of iterative reconstruction technique. FINDINGS: LOWER THORAX: Effusions there are tiny bilateral effusions and minimal bibasilar atelectasis. . Heart appears enlarged. No significant pericardial effusion. No evidence of basilar pneumothorax. In in LIVER: Liver measures nearly 18 cm in CC dimension. Mild diffuse fatty hepatic infiltration. There is small approximately 13 mm x 10 mm ill-defined low-attenuation focus seen within the anterior aspect medial segment left lobe liver bordering anterior capsular surface and adjacent fissure. This could represent small amount of localize fat or possibly a hemangioma or tiny cyst. Followup interval could be performed to assess stability. . Portal and splenic veins are opacified. GALLBLADDER AND BILE DUCTS: Cholecystectomy. PANCREAS: Pancreas appears slightly atrophic and fatty replaced. No obvious pancreatic mass collection or calcification. SPLEEN: Spleen exhibits normal size and attenuation pattern without mass collection or calcification. ADRENALS: No adrenal lesions. KIDNEYS AND URETERS: Kidneys demonstrate symmetric nephrograms. Re- demonstrated is an approximately 13.6 mm rounded low attenuation anterior aspect upper pole right kidney that exhibits Hounsfield units in the upper teens. This may represent hyperdense cyst. . There is also a very tiny sub cm low-attenuation focus the posterior cortex inferior pole left kidney, too this could also represent a small cyst. Followup ultrasound could confirm. . Re- demonstrated are at least 2 tiny nonobstructing calculi midpole right kidney No evidence of hydronephrosis. Mid. Note again made of slight cortical regularity both kidneys possibly related to nonspecific chronic scarring. BLADDER: Urinary bladder is physiologically distended. Minimal bladder wall thickening may be due to muscular hypertrophy. REPRODUCTIVE: Prostate gland measures approximately 3.8 cm in transverse dimension. Prostatic calcifications present. APPENDIX: Normal-appearing appendix best seen on coronal image number [id number]. No periappendiceal inflammatory changes. BOWEL: Evaluation of the bowel is limited due to the lack of oral contrast material. The stomach is nondistended which in part accounts for thick-walled appearance. Gastritis cannot be excluded. Visualized loops small bowel exhibit normal contour and caliber. No evidence of acute mechanical small bowel obstruction. Fairly extensive diverticulosis. Marked wall thickening of a lengthy segment of the proximal sigmoid colon which is associated with fairly significant surrounding infiltration and stranding changes in the adjacent mesenteric. There is also a small fluid and air collection adjacent - abutting the posterior superior margin of this segment of colon consistent with a microperforation and small abscess formation. The overall size measures approximately 5.3 cc x 5.0t x 3.2ap cm PERITONEUM: As above. Small fat containing bilateral inguinal hernias. LYMPH NODES: Unremarkable. No enlarged lymph nodes. VASCULATURE: Unremarkable. No aortic aneurysm. BONES: No fracture or destructive lesion. OTHER FINDINGS: None. IMPRESSION: Fairly extensive diffuse diverticulosis. There is a localized area of diverticulitis involving a segment of proximal sigmoid colon associate with small abscess collection as described. Mild hepatomegaly. Mild fatty hepatic infiltration. There is small ill-defined low-attenuation focus seen within the anterior aspect medial segment left lobe liver bordering anterior capsular surface and adjacent fissure. This could represent small amount of localize fat or possibly a hemangioma or tiny cyst. Followup interval could be performed to assess stability. Post cholecystectomy changes. Probable bilateral renal cysts. Tiny nonobstructing calculi right kidney. Tiny bilateral effusions and minimal bibasilar atelectasis
--- NOTE | 2018-01-14 15:35 | CP.PCM.PN ---
Subjective - Date & Time of Evaluation Date of Evaluation: 01/14/18 Time of Evaluation: 07:00 - Subjective Subjective: Surgery: Dr. Nguyen Pt seen and examined. No acute events overnight. States he is feeling a lot better compared to yesterday. Pain is much improved but still present in the lower quadrants. Admits to having episodes of nausea yesterday but states this morning it's better. Denies F/C. Objective - Vital Signs/Intake and Output Vital Signs (last 24 hours): Temp Pulse Resp BP Pulse Ox 98.3 F 74 20 120/79 97 01/14/18 07:00 01/14/18 08:30 01/14/18 07:00 01/14/18 07:00 01/14/18 07:00 - Medications Medications: Current Medications Acetaminophen (Tylenol 325mg Tab) 650 mg PO Q6 PRN PRN Reason: Fever >100.4 F Last Admin: 01/13/18 16:47 Dose: 650 mg Enoxaparin Sodium (Lovenox) 40 mg SC DAILY [facility] Last Admin: 01/14/18 10:31 Dose: 40 mg Hydromorphone HCl (Dilaudid) 0.5 mg IVP Q3H PRN PRN Reason: Pain, moderate (4-7) Last Admin: 01/14/18 00:43 Dose: 0.5 mg Metronidazole (Flagyl) 500 mg in 100 mls @ 100 mls/hr IVPB Q6 NEYMAR PRN Reason: Protocol Last Admin: 01/14/18 12:25 Dose: 100 mls/hr Ciprofloxacin (Cipro 400mg/200ml Dsw) 400 mg in 200 mls @ 133 mls/hr IVPB Q12H NEYMAR PRN Reason: Protocol Last Admin: 01/14/18 07:55 Dose: 133 mls/hr Lactated Ringer's (Lactated Ringer's) 1,000 mls @ 125 mls/hr IV .Q8H [facility] Last Admin: 01/14/18 13:33 Dose: Not Given Ondansetron HCl (Zofran Inj) 4 mg IVP Q4 PRN PRN Reason: Nausea/Vomiting Last Admin: 01/13/18 06:41 Dose: 4 mg - Labs Labs: 01/14/18 06:16 01/14/18 06:16 - Constitutional Appears: Well, No Acute Distress - Head Exam Head Exam: ATRAUMATIC, NORMOCEPHALIC - Eye Exam Eye Exam: Normal appearance - ENT Exam ENT Exam: Mucous Membranes Moist - Respiratory Exam Respiratory Exam: NORMAL BREATHING PATTERN - Cardiovascular Exam Cardiovascular Exam: RRR - GI/Abdominal Exam GI & Abdominal Exam: Soft, Tenderness (suprapubic ). absent: Distended, Guarding - Neurological Exam Neurological Exam: Alert, Awake, Oriented x3 - Skin Skin Exam: Dry, Warm Assessment and Plan - Assessment and Plan (Free Text) Assessment: 52M with acute diverticulitis; Hinchey I Plan: - repeat CT/abdomen pelvis to evaluate for drainable collection - cont IV ABX - will re-try on CLD - serial abdominal exams - d/w Dr. Nguyen who agrees with above Tracee, PGY-3
[2018-01-15] MEDS: metroNIDAZOLE IV 500 mg/100 ml 500 MG/100 ML BAG IVPB SCH ×4 (00:03→17:33)
[2018-01-15] MEDS: Lactated Ringer's 1,000 ML IV SCH ×2 (04:02→05:17)
[2018-01-15] MEDS: HYDROmorphone 0.5 mg/0.5 ml ISec IVP PRN (04:08)
[2018-01-15] MEDS: Ciprofloxacin 400mg/200ml D5W 400 MG/200 ML BAG IVPB SCH ×2 (06:56→19:01)
[2018-01-15] MEDS: Enoxaparin 40 mg Syringe SC SCH (09:57)
--- NOTE | 2018-01-15 16:14 | CP.PCM.PN ---
Subjective - Date & Time of Evaluation Date of Evaluation: 01/15/18 Time of Evaluation: 08:00 - Subjective Subjective: Surgery: Dr. Nguyen Pt seen and examined. States he's doing well and denies pain. Feeling a lot better today and tolerating clears. Denies N/V, F/C. Objective - Vital Signs/Intake and Output Vital Signs (last 24 hours): Temp Pulse Resp BP Pulse Ox 97.8 F 81 18 114/75 96 01/15/18 07:45 01/15/18 07:49 01/15/18 07:45 01/15/18 07:45 01/15/18 07:45 Intake and Output: 01/15/18 01/15/18 06:59 18:59 Output Total 600 Balance -600 - Medications Medications: Current Medications Acetaminophen (Tylenol 325mg Tab) 650 mg PO Q6 PRN PRN Reason: Fever >100.4 F Last Admin: 01/13/18 16:47 Dose: 650 mg Enoxaparin Sodium (Lovenox) 40 mg SC DAILY [facility] Last Admin: 01/15/18 09:57 Dose: 40 mg Metronidazole (Flagyl) 500 mg in 100 mls @ 100 mls/hr IVPB Q6 NEYMAR PRN Reason: Protocol Last Admin: 01/15/18 12:09 Dose: 100 mls/hr Ciprofloxacin (Cipro 400mg/200ml Dsw) 400 mg in 200 mls @ 133 mls/hr IVPB Q12H NEYMAR PRN Reason: Protocol Last Admin: 01/15/18 06:56 Dose: 133 mls/hr Ondansetron HCl (Zofran Inj) 4 mg IVP Q4 PRN PRN Reason: Nausea/Vomiting Last Admin: 01/13/18 06:41 Dose: 4 mg - Labs Labs: 01/14/18 06:16 01/14/18 06:16 - Constitutional Appears: Well, No Acute Distress - Head Exam Head Exam: ATRAUMATIC, NORMOCEPHALIC - Eye Exam Eye Exam: Normal appearance - ENT Exam ENT Exam: Mucous Membranes Moist - Respiratory Exam Respiratory Exam: NORMAL BREATHING PATTERN - Cardiovascular Exam Cardiovascular Exam: RRR - GI/Abdominal Exam GI & Abdominal Exam: Soft, Tenderness (lower abdominal quadrants ). absent: Distended - Neurological Exam Neurological Exam: Alert, Awake, Oriented x3 - Skin Skin Exam: Dry, Warm Assessment and Plan - Assessment and Plan (Free Text) Assessment: 52M with Diverticulitis; Hinchey 1 Plan: - start FLD, will advance slowly as tolerated - encourage ambulation - cont IV abx, plan to switch to PO ABX and possibly DC home tomorrow AM - d/w Dr. Patrick Easley, PGY-3
[2018-01-15 16:17] VITALS: RESP 20
[2018-01-16] MEDS: metroNIDAZOLE IV 500 mg/100 ml 500 MG/100 ML BAG IVPB SCH (00:33)
[2018-01-16] MEDS: Ciprofloxacin 400mg/200ml D5W 400 MG/200 ML BAG IVPB SCH (06:18)
[2018-01-16 06:43] LABS: BASO % 0.2 % (0.0-2.0); EOS # 0.1 K/uL (0.0-0.7); EOS % 1.9 % (0.0-4.0); HEMOGLOBIN 12.5 g/dL (12.0-18.0); LYMPH # 2.5 K/uL (1.0-4.3); LYMPH % 42.1 % (20.0-40.0); MEAN CELL VOLUME 85.8 fL (80.0-94.0); MEAN CORPUSCULAR HEMOGLOBIN 29.5 pg (27.0-31.0); MEAN CORPUSCULAR HGB CONC 34.4 g/dL (33.0-37.0); MEAN PLATELET VOLUME 8.4 fL (7.2-11.7); MONO # 0.6 K/uL (0.0-0.8); MONO % 10.3 % (0.0-10.0); NEUT # 2.7 K/uL (1.8-7.0); NEUT % 45.5 % (50.0-75.0); RBC 4.22 Mil/uL (4.40-5.90); RED CELL DISTRIBUTION WIDTH 13.6 % (11.5-14.5); WHITE BLOOD COUNT 5.9 K/uL (4.8-10.8)
[2018-01-16] MEDS: Enoxaparin 40 mg Syringe SC SCH (09:45)
--- NOTE | 2018-01-16 18:39 | CP.PCM.DIS ---
Provider - Provider Date of Admission: 01/10/18 19:00 Attending physician: Solitario Nguyen MD Time Spent in preparation of Discharge (in minutes): 10 Hospital Course - Lab Results Lab Results: Micro Results 01/10/18 21:00 Blood-Venous Blood Culture - Final NO GROWTH AFTER 5 DAYS 01/10/18 21:00 Blood-Venous Gram Stain - Final TEST NOT PERFORMED 01/10/18 20:30 Blood-Venous Blood Culture - Final NO GROWTH AFTER 5 DAYS 01/10/18 20:30 Blood-Venous Gram Stain - Final TEST NOT PERFORMED Most Recent Lab Values WBC 5.9 K/uL (4.8-10.8) 01/16/18 06:14 RBC 4.22 Mil/uL (4.40-5.90) L 01/16/18 06:14 Hgb 12.5 g/dL (12.0-18.0) 01/16/18 06:14 Hct 36.2 % (35.0-51.0) 01/16/18 06:14 MCV 85.8 fL (80.0-94.0) 01/16/18 06:14 MCH 29.5 pg (27.0-31.0) 01/16/18 06:14 MCHC 34.4 g/dL (33.0-37.0) 01/16/18 06:14 RDW 13.6 % (11.5-14.5) 01/16/18 06:14 Plt Count 459 K/uL (130-400) H 01/16/18 06:14 MPV 8.4 fL (7.2-11.7) 01/16/18 06:14 Neut % (Auto) 45.5 % (50.0-75.0) L 01/16/18 06:14 Lymph % (Auto) 42.1 % (20.0-40.0) H 01/16/18 06:14 Ida % (Auto) 10.3 % (0.0-10.0) H 01/16/18 06:14 Eos % (Auto) 1.9 % (0.0-4.0) 01/16/18 06:14 Baso % (Auto) 0.2 % (0.0-2.0) 01/16/18 06:14 Neut # (Auto) 2.7 K/uL (1.8-7.0) 01/16/18 06:14 Lymph # (Auto) 2.5 K/uL (1.0-4.3) 01/16/18 06:14 Ida # (Auto) 0.6 K/uL (0.0-0.8) 01/16/18 06:14 Eos # (Auto) 0.1 K/uL (0.0-0.7) 01/16/18 06:14 Baso # (Auto) 0.0 K/uL (0.0-0.2) 01/16/18 06:14 pO2 26 mm/Hg (30-55) L 01/10/18 16:54 VBG pH 7.37 (7.32-7.43) 01/10/18 16:54 VBG pCO2 28 mmHg (40-60) L 01/10/18 16:54 VBG HCO3 17.6 mmol/L 01/10/18 16:54 VBG Total CO2 17.1 mmol/L (22-28) L 01/10/18 16:54 VBG O2 Sat (Calc) 61.2 % (40-65) 01/10/18 16:54 VBG Base Excess -7.6 mmol/L (0.0-2.0) L 01/10/18 16:54 VBG Potassium 2.1 mmol/L (3.6-5.2) L* 01/10/18 16:54 Sodium 150.0 mmol/l (132-148) H 01/10/18 16:54 Chloride 120.0 mmol/L (98-107) H 01/10/18 16:54 Glucose 71 mg/dl (75-110) L 01/10/18 16:54 Lactate 1.0 mmol/L (0.7-2.1) 01/10/18 16:54 Crit Value Called To Dr jiménez 01/10/18 16:54 Crit Value Called By Cristi [facility] interpretive specialist 01/10/18 16:54 Crit Value Read Back Y 01/10/18 16:54 Blood Gas Notified Time 1655 01/10/18 16:54 Sodium 140 mmol/L (132-148) 01/14/18 06:16 Potassium 3.6 mmol/L (3.6-5.2) 01/14/18 06:16 Chloride 102 mmol/L (98-107) 01/14/18 06:16 Carbon Dioxide 25 mmol/L (22-30) 01/14/18 06:16 Anion Gap 17 (10-20) 01/14/18 06:16 BUN 4 mg/dL (9-20) L 01/14/18 06:16 Creatinine 1.0 mg/dL (0.8-1.5) 01/14/18 06:16 Est GFR ( Amer) > 60 01/14/18 06:16 Est GFR (Non-Af Amer) > 60 01/14/18 06:16 POC Glucose (mg/dL) 85 mg/dL (65-110) 01/12/18 12:03 Random Glucose 91 mg/dL (75-110) 01/14/18 06:16 Calcium 8.1 mg/dl (8.6-10.4) L 01/14/18 06:16 Total Bilirubin 0.4 mg/dL (0.2-1.3) 01/14/18 06:16 AST 25 U/L (17-59) 01/14/18 06:16 ALT 32 U/L (21-72) 01/14/18 06:16 Alkaline Phosphatase 100 U/L (38-126) 01/14/18 06:16 Total Protein 7.2 g/dL (6.3-8.3) 01/14/18 06:16 Albumin 3.1 g/dL (3.5-5.0) L 01/14/18 06:16 Globulin 4.1 gm/dL (2.2-3.9) H 01/14/18 06:16 Albumin/Globulin Ratio 0.7 (1.0-2.1) L 01/14/18 06:16 Lipase 111 U/L (23-300) 01/10/18 16:55 Venous Blood Potassium 2.1 mmol/L (3.6-5.2) L* 01/10/18 16:54 Urine Color Yellow (YELLOW) 01/10/18 17:17 Urine Clarity Clear (Clear) 01/10/18 17:17 Urine pH 5.0 (5.0-8.0) 01/10/18 17:17 Ur Specific Marlin 1.016 (1.003-1.030) 01/10/18 17:17 Urine Protein Negative mg/dL (NEGATIVE) 01/10/18 17:17 Urine Glucose (UA) Normal mg/dL (Normal) 01/10/18 17:17 Urine Ketones Negative mg/dL (NEGATIVE) 01/10/18 17:17 Urine Blood Negative (NEGATIVE) 01/10/18 17:17 Urine Nitrate Negative (NEGATIVE) 01/10/18 17:17 Urine Bilirubin Negative (NEGATIVE) 01/10/18 17:17 Urine Urobilinogen Normal mg/dL (0.2-1.0) 01/10/18 17:17 Ur Leukocyte Esterase Neg Darline/uL (Negative) 01/10/18 17:17 Urine WBC (Auto) 4 /hpf (0-5) 01/10/18 17:17 Urine RBC (Auto) 1 /hpf (0-3) 01/10/18 17:17 Ur Squamous Epith Cells < 1 /hpf (0-5) 01/10/18 17:17 - Hospital Course Hospital Course: Pt is a 52M with no significant PMHx who presented with abdominal pain on 01/10. Pt got a CT abdomen/pelvis which showed diverticulitis with pericolic phlegmonous changes. Pt was started on IV ABX and GI was consulted to set up for oupt follow up. Pt responded well to IV ABX and was eventually started on CLD and advanced as tolerated. This morning pt is doing well, tolerating soft diet and having BMs. Abdominal pain has resolved. Pt will be DC home with outpt f/u. Discharge Exam - Head Exam Head Exam: ATRAUMATIC, NORMOCEPHALIC - Eye Exam Eye Exam: Normal appearance - ENT Exam ENT Exam: Mucous Membranes Moist - Respiratory Exam Respiratory Exam: NORMAL BREATHING PATTERN - Cardiovascular Exam Cardiovascular Exam: RRR - GI/Abdominal Exam GI & Abdominal Exam: Soft. absent: Distended, Tenderness - Neurological Exam Neurological exam: Alert, Oriented x3 - Skin Skin Exam: Dry, Warm Discharge Plan - Discharge Medications Prescriptions: Ciprofloxacin HCl [Cipro] 500 mg PO Q12H 7 Days tablet Metronidazole [Flagyl] 500 mg PO Q8H 7 Days tablet - Follow Up Plan Condition: FAIR Disposition: HOME/ ROUTINE Instructions: Ciprofloxacin (Systemic), Diverticulitis (DC), Metronidazole ( Systemic) Additional Instructions: Follow up with Dr. Nguyen in 2-3 weeks. Follow up with GI for colonoscopy. PO ABX for 1 week. Continue with low residue diet & take over the counter stool softners for constipation PRN. Referrals: Solitario Nguyen MD [Staff Provider] -
[2018-01-17 11:18] VITALS: BP 124/77; PULSE 85; TEMP 97.4; O2SAT 95
== END 2018-01-16 17:31 | disposition home or self-care (01) | DRG 392 ==
LOC: C.ER 16:12 → C.9E 19:00 → C.5S 20:04 → C.6T 01-11 14:49
PROVIDERS: ADMIT Specialist; ATTEND Specialist
DX: K57.20 Diverticulitis of large intestine with perforation and abscess without bleeding (principal); Z90.49 Acquired absence of other specified parts of digestive tract; K59.00 Constipation, unspecified

== ENCOUNTER 2019-01-30 21:47 | Emergency (ER) | payer SELFPAY ==
[2019-01-30] MEDS ORDERED: Albuterol 0.042% Inhal Sol (1.25 mg/3 mL) UD ONE (22:18)
[2019-01-30] MEDS ORDERED: Albuterol 0.083% Inhal Sol (2.5 mg/3 mL) UD IH STA (22:44)
[2019-01-30] MEDS ORDERED: Albuterol 0.083% Inhal Sol (2.5 mg/3 mL) UD ONE (22:58)
--- NOTE | 2019-01-30 23:27 | C.PDOC ---
History Of Present Illness 53 year old male presents with cough, chest congestion, headache, body aches, and chills for the past 3 days. Patient has not taken any medications at home for his symptoms. Today patient states he felt very congested with difficulty breathing prompting visit. Denies fever, chest pain, or chest tightness. Time Seen by Provider: 01/30/19 22:08 Chief Complaint (Nursing): Cough, Cold, Congestion History Per: Patient History/Exam Limitations: no limitations Onset/Duration Of Symptoms: Days (3) Current Symptoms Are (Timing): Still Present Sick Contacts (Context): None Associated Symptoms: Chills, Cough, Myalgias, Other (Chest congestion, headache) Recent travel outside of the [place]: No Past Medical History Reviewed: Historical Data, Nursing Documentation, Vital Signs Vital Signs: Last Vital Signs Temp 98.6 F 01/30/19 21:55 Pulse 95 H 01/30/19 21:55 Resp 16 01/30/19 21:55 BP 110/76 01/30/19 21:55 Pulse Ox 98 01/30/19 21:55 Surgical History: Cholecystectomy (2 yrs. ago) Family History: States: Unknown Family Hx - Social History Hx Alcohol Use: No Hx Substance Use: No - Immunization History Hx Tetanus Toxoid Vaccination: No Hx Influenza Vaccination: No Hx Pneumococcal Vaccination: No Review Of Systems Constitutional: Positive for: Chills. Negative for: Fever Cardiovascular: Negative for: Chest Pain Respiratory: Positive for: Cough, Other (Chest congestion) Musculoskeletal: Positive for: Other (Body aches) Neurological: Positive for: Headache Physical Exam - Physical Exam Appears: Non-toxic Skin: Normal Color, Warm Head: Atraumatic, Normacephalic Eye(s): bilateral: Normal Inspection Ear(s): Bilateral: Normal Nose: Normal Oral Mucosa: Moist Throat: Normal, No Erythema, No Exudate Chest: Symmetrical Cardiovascular: Rhythm Regular Respiratory: Normal Breath Sounds, No Rales, No Rhonchi, No Stridor, Other (Congestion) Neurological/Psych: Oriented x3, Normal Speech ED Course And Treatment O2 Sat by Pulse Oximetry: 98 (Room air) Progress Note: Albuterol nebulizer, saline nebulizer, prednisone, and benadryl administered. Patient is resting comfortably in no acute distress, vitals are stable, will discharge home with Rx and instructions to follow up with PMD. Disposition Counseled Patient/Family Regarding: Diagnosis, Need For Followup, Rx Given - Disposition Referrals: [facility] [Outside] Disposition: HOME/ ROUTINE Disposition Time: 23:24 Condition: STABLE Additional Instructions: Please follow up with PMD Take meds as prescribed Increase PO fluids Return to ER if worse Prescriptions: Cetirizine HCl [Zyrtec] 10 mg PO DAILY #14 capsule Ibuprofen [Motrin] 600 mg PO Q6H #30 tab predniSONE [Prednisone] 40 mg PO DAILY #10 tab Promethazine DM [Phenergan DM Syrup] 10 ml PO QID #120 ml Instructions: Viral Upper Respiratory Infection, Adult (DC) Forms: [employer] (Syri[place]), Work Excuse Print Language: LUXEMBOURGER - Clinical Impression Clinical Impression: Upper respiratory infection - 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 - Scribe Statement The provider has reviewed the documentation as recorded by the Scribfabi Scott All medical record entries made by the Cierraibfabi were at my direction and personally dictated by me. I have reviewed the chart and agree that the record accurately reflects my personal performance of the history, physical exam, medical decision making, and the department course for this patient. I have also personally directed, reviewed, and agree with the discharge instructions and disposition.
[2019-01-30 23:55] VITALS: BP 125/77; PULSE 81; RESP 20; TEMP 98.3
[2019-01-30 23:58] VITALS: O2SAT 98
== END 2019-01-30 23:58 | disposition home or self-care (01) ==
LOC: C.ER 21:47
DX: J06.9 Acute upper respiratory infection, unspecified (principal)